=== PATIENT | male | born 1935 | race Caucasian/White ===

== ENCOUNTER → 2018-03-13 | Outpatient (CLI) | payer MEDICARE, OTHER ==
[~2018-03-13] MED LIST: ALBUTEROL2.5 MG/31; ASPIRIN EC325 M1 PO; BUMETANIDE 1 MG1 M1 PO; BUSPIRONE HCL7.5 MG; COLACE 100 MG100 MG PO; FISH OIL 1,0001 EAC5 PO; FLOMAX0.4 MG PO; FOLGARD TABLET1 EAC1 PO; KEFLEX500 MG PO; LEVAQUIN 500 M500 M7 PO; LEVOFLOXACIN750 MG PO; LIPITOR80 MG PO; LISINOPRIL2.5 MG PO; MEDROLDOSEPACK PO; METOPROLOL SUCC25 M1 PO; NORVASC 5 MG TAB5 MG PO; OMEPRAZOLE 20 M20 MG; POTASSIUM20 PO; PYRIDIUM200 M2 PO; SAW PALMETTO500 MG PO; SYMBICORT80 MCG/4.1; TOPROL XL50 MG; VIT B12 PO
== END ==
LOC: M.RAD 15:42
DX: R06.00 Dyspnea, unspecified (principal)